=== PATIENT | female | born 1955 | race Caucasian/White ===

== ENCOUNTER 2017-07-21 13:28 | Observation (INO) | payer OTHER, SELFPAY ==
--- NOTE | 2017-07-21 14:01 | RAD ---
1 VIEW CHEST: Date: 07/21/17 HISTORY: Chest pain. COMPARISON: None. FINDINGS: Normal cardiac silhouette. Pulmonary vessels and hilum are normal. No mass. No consolidation. No osse ous abnormalities or pneumothorax. Previous left rotator cuff repair and cervical fusion hardware is noted. IMPRESSION: No acute cardiopulmonary process. POS: [facility]
[2017-07-21 14:03] LABS: #Basophils 0.1 thou/uL (0.0-0.2); #Eosinphils 0.2 thou/uL (0.0-0.7); #Lymphocytes 3.2 thou/uL (1.20-3.40); #Monocytes 0.6 thou/uL (0.11-0.59); #Neutrophils 5.1 thou/uL (1.40-6.50); %Basophils 0.8 % (0.0-1.0); %Eosinophils 1.7 % (0.0-10.0); %Lymphocytes 35.6 % (21.0-51.0); %Monocytes 6.2 % (0.0-10.0); Hematocrit 43.3 % (36.0-47.0); Mean Platelet Volume 7.1 fL (7.4-10.4); Red Blood Cell (RBC) Count 5.37 mill/uL (4.20-5.40); White Blood Cell (WBC) Count 9.1 thou/uL (4.8-10.8)
[2017-07-21] MEDS ORDERED: Nitroglycerin 2% Ointment 1 INCH/1 GM Packet ONE (14:19)
[2017-07-21 14:24] LABS: ALT (SGPT) 28 U/L (8-55); AST (SGOT) 30 U/L (5-34); Alkaline Phosphatase 94 U/L (40-150); Anion Gap 11 mmol/L (10-20); BUN (Urea Nitrogen) 12 mg/dL (9.8-20.1); Bilirubin, Total 0.2 mg/dL (0.2-1.2); CK (CPK) 78 U/L (29-168); Calc. Creatinine Clearance 0 mL/min (70-130); Calcium 9.1 mg/dL (7.8-10.44); Carbon Dioxide 26 mmol/L (23-31); Chloride 104 mmol/L (98-107); Estimated GFR-MDRD 69; Globulin 3.5 g/dL (2.4-3.5); Lipase 25 U/L (8-78); Protein, Total 7.2 g/dL (6.0-8.3)
[2017-07-21 14:29] LABS: Troponin I Less than 0.010 ng/mL (< 0.028)
[2017-07-21] MEDS ORDERED: hydrALAZINE 20 MG/ML VIAL SLOW IVP PRN (17:36)
[2017-07-21] MEDS ORDERED: Dextrose 50% Abboject 50 ML SYRINGE SLOW IVP PRN (17:36)
[2017-07-21] MEDS ORDERED: Insulin Regular 300 UNITS/3 ML VIAL SC PRN ×2 (17:36)
[2017-07-21] MEDS ORDERED: Dextrose 5% in Water 1,000 ML IV PRN (17:36)
[2017-07-21] MEDS ORDERED: Labetalol HCl 100 MG/20 ML VIAL SLOW IVP PRN (17:36)
[2017-07-21] MEDS ORDERED: Calcium Carbonate 500 MG ChewTAB PO PRN (17:36)
[2017-07-21] MEDS ORDERED: Mag-Al 1200 mg/1200 mg/30 ML UDCUP PO PRN (17:36)
[2017-07-21] MEDS ORDERED: Senokot 8.6 MG TAB PO PRN (17:36)
[2017-07-21] MEDS ORDERED: Nitroglycerin 0.4 MG TAB (25 Tab Bottle) PO PRN (17:36)
[2017-07-21] MEDS ORDERED: cloNIDine 0.1 MG TAB PO PRN (17:36)
[2017-07-21 17:45] LABS: Troponin I Less than 0.010 ng/mL (< 0.028)
[2017-07-21 17:55] VITALS: BMI 37.2
[2017-07-21] MEDS: Acetaminophen 325 MG TAB PO PRN (18:12)
[2017-07-21] MEDS ORDERED: Cyclobenzaprine 10 MG TAB PO PRN (18:35)
[2017-07-21] MEDS ORDERED: Insulin Detemir 100 UNITS/ML 10 UNITS in Pre-Filled Syringe SC SCH (18:45)
[2017-07-21] MEDS ORDERED: Insulin Detemir 100 UNITS/ML 20 UNITS in Pre-Filled Syringe 1 EACH SC SCH (18:45)
--- NOTE | 2017-07-21 19:08 | HP ---
DATE OF ADMISSION: 07/21/2017 PRIMARY CARE PHYSICIAN: Dr. Spenser Cloud in [place]. CHIEF COMPLAINT: Chest discomfort. CODE STATUS: FULL CODE. HISTORY OF PRESENT ILLNESS: Patient is a 61-year-old female with hypertension, diabetes mellitus typ e 2, and chronic pain syndrome who presented to the emergency room with above complaints. The chest discomfort started this morning while she was at home. It was pressure-like substernal rad iating to her jaw and neck. She had some nausea and shortness of breath. The chest discomfort impro john with nitroglycerin. She denies any syncope or palpitations. No recent immobilization, travel, f ever, chills, cough, shortness of breath or wheezing. She denies any dyspepsia or abdominal pain. In the emergency room, initial vital signs showed temperature 98.9, respirations 18, pulse of 72, blo od pressure of 112/76 with O2 saturation 99% on 2 liter nasal cannula. Initial troponins were normal . She received aspirin and 1 inch nitro patch was placed. PAST MEDICAL HISTORY: 1. Hypertension. 2. Diabetes mellitus type 2. 3. Chronic pain syndrome. 4. Hypothyroidism. PAST SURGICAL HISTORY: 1. Multiple orthopedic surgeries, especially in her left arm. 2. with bilateral oophorectomy. 3. Rotator cuff surgery on the right shoulder. 4. Tonsillectomy. 5. Multiple spinal surgeries. It was cervical spine and lumbar spine. ALLERGIES: Patient is allergic to PEPCID, IODINE and VACCINES. CURRENT HOME MEDICATIONS: Acyclovir 200 mg daily, atenolol 50 mg b.i.d., benazepril 20 mg daily, Stan rontin 100 mg b.i.d., Lantus 60 units daily, Humulin 70/30 sliding scale, levothyroxine 150 mcg daily and Prilosec 20 mg daily. SOCIAL HISTORY: Patient currently lives at home. She is currently disabled. She denies any history of smoking, alcohol or drug use. FAMILY HISTORY: Brother with leukemia. REVIEW OF SYSTEMS: The following complete review of systems was negative, unless otherwise mentioned in the HPI or below: CONSTITUTIONAL: Weight loss or gain, ability to conduct usual activities. SKIN: Rash, itching. EYES: Double vision, pain. ENT/MOUTH: Nose bleeding, neck stiffness, pain, tenderness. CARDIOVASCULAR: Palpitations, dyspnea on exertion, orthopnea. RESPIRATORY: Shortness of breath, wheezing, cough, hemoptysis, fever or night sweats. GASTROINTESTINAL: Poor appetite, abdominal pain, heartburn, nausea, vomiting, constipation, or diarr hea. GENITOURINARY: Urgency, frequency, dysuria, nocturia. MUSCULOSKELETAL: Pain, swelling. NEUROLOGIC/PSYCHIATRIC: Anxiety, depression. ALLERGY/IMMUNOLOGIC: Skin rash, bleeding tendency. PHYSICAL EXAMINATION: VITAL SIGNS: As discussed above. Her blood pressure in the emergency room was 112/76 with a pulse 7 2, respiration 18 and temperature of 98.9. GENERAL: A 61-year-old female in no apparent distress. Denies any chest discomfort at this time. HEENT: Head atraumatic, normocephalic. Sclerae are anicteric. Moist mucous membrane, no oral lesio n. NECK: Supple, no JVD appreciated. No carotid bruit. LUNGS: Clear to auscultation bilaterally. No wheezing, rales or rhonchi. HEART: S1, S2 present. Regular rate and rhythm. No heaves or pulsation. Questionable reproducible chest wall tenderness. ABDOMEN: Soft, nontender, bowel sounds present. EXTREMITIES: No edema or calf tenderness. NEUROLOGIC: Grossly nonfocal, moves all 4 extremities. PSYCHIATRY: Alert, awake, oriented x3. SKIN: Warm and dry. LYMPH NODES: No palpable lymph nodes in the neck. PERIPHERAL VASCULAR: Radial pulses palpable bilaterally. MUSCULOSKELETAL: No joint swelling or tenderness. LABORATORY FINDINGS: Troponins were normal. Sodium 136, potassium 4.6, chloride 104, bicarbonate 26 . CBC showed WBC 9.1 with hemoglobin 13.9, hematocrit 43.3. EKG by my review showed sinus rhythm wi th voltage criteria for left ventricular hypertrophy, left axis deviation. Chest x-ray by my review was negative for infiltrate or edema. IMPRESSION: 1. Chest discomfort, rule out acute coronary syndrome. Patient has multiple risk factors for pierre ry artery disease. 2. Diabetes mellitus type 2. 3. Hypertension. 4. Chronic pain syndrome due to degenerative joint disease, especially in the back and shoulder. 5. Hypothyroidism. 6. Chronic kidney disease stage 2. 7. Obesity with a BMI 37.2. PLAN: The patient will be monitored in the telemetry unit. Serial cardiac enzymes will be done. We will schedule a stress test in a.m. Home medications will be resumed. We will start her on sliding scale. We will give her low dose of Levemir tonight. Keep her n.p.o. past midnight. Plan of care was discussed with the patient and she stated understanding. DISPOSITION: Probably in 24 hours if stress test is normal.
[2017-07-21] MEDS: Gabapentin 100 MG CAP PO SCH (20:40)
[2017-07-21] MEDS: Atenolol 50 MG TAB PO SCH (20:40)
[2017-07-21 21:17] LABS: Troponin I Less than 0.010 ng/mL (< 0.028)
[2017-07-22] MEDS ORDERED: Levothyroxine 150 MCG TAB PO SCH (06:00)
[2017-07-22] MEDS ORDERED: Acyclovir 200 mg Capsule PO SCH (09:00)
[2017-07-22] MEDS ORDERED: Aspirin 325 MG TAB PO SCH (09:00)
[2017-07-22] MEDS: Atenolol 50 MG TAB PO SCH (11:35)
[2017-07-22] MEDS: Gabapentin 100 MG CAP PO SCH (11:36)
--- NOTE | 2017-07-22 12:58 | NM ---
RADIONUCLIDE STRESS ONLY MYOCARDIAL PERFUSION SCAN WITH CT ATTENUATION CORRECTION AND SPECT IMAGING LEFT VENTRICULAR WALL MOTION EVALUATION AND EJECTION FRACTION: HISTORY: Chest pain. FINDINGS: Adenosine protocol was used. There is heterogeneous uptake of radiotracer throughout the left ventri cular myocardium without focal perfusion defect apparent. QGS analysis of gated SPECT images shows hypokinesis, most pronounced at the septal/inferior wall. Le ft ventricular ejection fraction is calculated at 37%. IMPRESSION: 1. Normal myocardial perfusion scan showing no evidence of ischemia. 2. Depressed ejection fraction. Please correlate with other information regarding cardiomyopathy. POS: [facility]
--- NOTE | 2017-07-22 14:06 | PDOC.PN ---
- Subjective Encounter Start Date: 07/22/17 Encounter Start Time: 14:03 Patient seen and examined. No new complaints. No overnight events. No CP - Objective Resuscitation Status: Resuscitation Status FULL:Full Resuscitation MAR Reviewed: Yes Vital Signs & Weight: Vital Signs (12 hours) Temp Pulse Resp BP BP Pulse Ox 07/22/17 12:00 97.7 F 77 20 142/65 H 96 07/22/17 11:36 142/65 H 07/22/17 11:35 66 142/65 H 07/22/17 08:15 97.6 F 66 20 126/64 94 L 07/22/17 07:54 98.1 F 70 16 07/22/17 04:45 98.1 F 70 16 132/62 95 Weight Weight 196 lb 6.4 oz I&O: 07/21/17 07/22/17 07/23/17 06:59 06:59 06:59 Intake Total 540 115 Output Total 1750 450 Balance -1210 -335 Result Diagrams: 07/21/17 13:51 07/21/17 13:50 Additional Labs: Accuchecks 07/22/17 07/22/17 07/22/17 08:35 04:44 00:25 POC Glucose 125 H 129 H 143 H 07/21/17 07/21/17 20:40 16:57 POC Glucose 208 H 115 H Phys Exam - Physical Examination Constitutional: NAD Respiratory: no wheezing, no rhonchi Cardiovascular: RRR, no rub Gastrointestinal: soft, non-tender, positive bowel sounds Musculoskeletal: no edema Neurological: non-focal, moves all 4 limbs Psychiatric: A&O x 3 Dx/Plan - Plan DVT proph w/SCDs IMPRESSION: 1. Chest discomfort. Stress test - EF 37%. No reversible ischemia. 2. Diabetes mellitus type 2. 3. Hypertension. 4. Chronic pain syndrome due to degenerative joint disease, especially in the back and shoulder. 5. Hypothyroidism. 6. Chronic kidney disease stage 2. 7. Obesity with a BMI 37.2. PLAN: * Urgent Echo to evaluate EF * Cont other meds as below * Consult Cardiology if EF is low * Cont to monitor Review of Systems - Review of Systems Respiratory: negative: Cough, Dry, Shortness of Breath, Hemoptysis, SOB with Excertion, Pleuritic Pain, Sputum, Wheezing Cardiovascular: negative: Chest Pain, Palpitations, Orthopnea, Paroxysmal Noc. Dyspnea, Edema, Light Headedness, Other Gastrointestinal: negative: Nausea, Vomiting, Abdominal Pain, Diarrhea, Constipation, Melena, Hematochezia, Other - Medications/Allergies Allergies/Adverse Reactions: Allergies Allergy/AdvReac Type Severity Reaction Status Date / Time [id number] Reductase Allergy Unknown Verified 07/22/17 06:29 Inhibitor famotidine [From Pepcid] Allergy VOMITING Verified 12/02/15 16:39 Iodine and Iodide Containing Allergy ITCHING, Verified 12/02/15 16:39 Produc ANAPHYLAXIS ondansetron HCl Allergy VOMITING Verified 12/02/15 16:39 [From Zofran (as hydrochloride)] pneumococcal vaccine Allergy Rash Verified 12/02/15 16:39 Sulfa (Sulfonamide Allergy HALLUCINATI Verified 12/02/15 16:39 Antibiotics) ONS zolpidem tartrate Allergy HALLUCINATI Verified 12/02/15 16:39 [From Ambien] ONS vaccine preservative Allergy Uncoded 12/02/15 16:39 Medications: Current Medications Acetaminophen (Tylenol) 650 mg PO Q4H PRN PRN Reason: Headache/Fever or Pain Last Admin: 07/21/17 18:12 Dose: 650 mg Acyclovir (Zovirax) 200 mg PO DAILY [facility] Stop: 07/29/17 09:01 Last Admin: 07/22/17 11:35 Dose: 200 mg Al Hydroxide/Mg Hydroxide (Maalox) 30 ml PO Q6H PRN PRN Reason: Heartburn or Indigestion Aspirin (Aspirin) 325 mg PO DAILY [facility] Last Admin: 07/22/17 11:35 Dose: 325 mg Atenolol (Tenormin) 50 mg PO BID [facility] Last Admin: 07/22/17 11:35 Dose: 50 mg Benazepril HCl (Lotensin) 20 mg PO DAILY [facility] Last Admin: 07/22/17 11:36 Dose: 20 mg Calcium Carbonate (Tums) 1,000 mg PO Q4H PRN PRN Reason: Heartburn or Indigestion Clonidine (Catapres) 0.1 mg PO Q4H PRN PRN Reason: Systolic BP > 180 Cyclobenzaprine HCl (Flexeril) 5 mg PO TID PRN PRN Reason: Muscle Spasm Stop: 07/23/17 18:36 Dextrose/Water (Dextrose 50%) 25 gm SLOW IVP PRN PRN PRN Reason: Hypoglycemia Gabapentin (Neurontin) 100 mg PO BID [facility] Last Admin: 07/22/17 11:36 Dose: 100 mg Glucagon (Glucagon) 1 mg IM PRN PRN PRN Reason: Hypoglycemia Hydralazine HCl (Apresoline) 10 mg SLOW IVP Q4H PRN PRN Reason: SBP Greater Than 180 Dextrose/Water (D5w) 1,000 mls @ 0 mls/hr IV .Q0M PRN; As Directed PRN Reason: Hypoglycemia Insulin Human Regular (Humulin R) 0 units SC .MILD SLIDING SCALE PRN PRN Reason: Mild Correctional Scale Insulin Human Regular (Humulin R) 0 units SC .BEDTIME SLIDING SC PRN PRN Reason: Bedtime Correctional Scale Labetalol HCl (Normodyne) 10 mg SLOW IVP Q4H PRN PRN Reason: Systolic BP > 180 Levothyroxine Sodium (Synthroid) 150 mcg PO 0600 [facility] Last Admin: 07/22/17 04:49 Dose: 150 mcg Nitroglycerin (Nitrostat) 0.4 mg PO Q5MIN PRN PRN Reason: Chest Pain Pantoprazole Sodium (Protonix) 40 mg PO DAILY [facility] Last Admin: 07/22/17 11:36 Dose: 40 mg Senna (Senokot) 2 tab PO HSPRN PRN PRN Reason: Constipation Sodium Chloride (Flush - Normal Saline) 10 ml IVF PRN PRN PRN Reason: Saline Flush
[2017-07-22 16:05] VITALS: BP 113/60; TEMP 98.4
[2017-07-22] MEDS: Acetaminophen 325 MG TAB PO PRN (16:31)
[2017-07-22] MEDS ORDERED: ADENOSINE 60 MG/20 ML VIAL ONE (16:43)
--- NOTE | 2017-07-22 19:11 | DIS ---
DATE OF DISCHARGE: 07/22/2017 DISCHARGE DISPOSITION: Home. FOLLOWUP: Follow up with Dr. Clemente Cloud in 1 week. DISCHARGE MEDICATIONS: 1. Aspirin 81 mg daily. 2. Atenolol 50 mg b.i.d. 3. Benazepril 20 mg daily. 4. Flexeril as needed. 5. Neurontin 100 mg b.i.d. 6. Lantus 60 units daily. 7. Humulin 70/30 as directed. 8. Levothyroxine 150 mcg daily. 9. Omeprazole 20 mg daily. 10. Acyclovir 200 mg daily. INPATIENT CONSULTANTS: None. The patient was seen and examined on the day of discharge. Denies any new complaints. No chest pain , shortness of breath, palpitations. BRIEF HOSPITAL COURSE: The patient is a 61-year-old female with hypertension; diabetes mellitus, typ e 2; chronic pain syndrome; and obstructive sleep apnea, not on CPAP; who presented to the emergency room with chest discomfort. Please refer to the history and physical dated 07/21/2017 for further de tails. The patient was admitted to the hospital with the diagnosis of chest discomfort, rule out acute coron peggy syndrome. Her serial cardiac enzymes were negative. She underwent a Cardiolite stress test that was negative for reversible ischemia. Ejection fraction on the stress test was around 37%. For thi s reason, an echocardiogram was done that showed ejection fraction 40% to 45% with grade I diastolic dysfunction. Right ventricular size and function was normal. Left atrium was normal in size. There was also mild mitral regurgitation and mild tricuspid regurgitation. Lifestyle modification was emp hasized. She will benefit from a Cardiology consultation and follow up as outpatient. I also discus sed the case with the on-call surface miner. No new recommendations were made. She needs to get a sl eep study and be compliant with CPAP. She will benefit from a repeat echo in 3-6 months. Weight los s was emphasized. FINAL DIAGNOSES: 1. Chest discomfort, acute coronary syndrome ruled out. 2. No reversible ischemia on the stress test. 3. Cardiomyopathy with ejection fraction of 40% to 45% of unclear etiology. An outpatient cardiolog y evaluation is recommended. Again, there was no reversible ischemia on the stress test. 4. Hypertension. 5. Chronic pain syndrome. 6. Hypothyroidism. 7. Obstructive sleep apnea, not on CPAP. 8. Chronic kidney disease, stage 2. 9. Obesity with BMI of 37.1. 10. Chronic diastolic heart failure, compensated. SIGNIFICANT LABORATORY DATA: 1. Fasting lipid showed cholesterol 184, cholesterol 206, LDL was 127, HDL 42. 2. BUN was 12, creatinine 0.83, potassium 4.6 with chloride 104, sodium 136. 3. CBC showed WBC 9.1 with hemoglobin 13.9.
--- NOTE | 2017-09-03 14:59 | EKG ---
Test Reason : CHEST PAIN Blood Pressure : / mmHG Vent. Rate : 071 BPM Atrial Rate : 071 BPM P-R Int : 160 ms QRS Dur : 086 ms QT Int : 418 ms P-R-T Axes : 036 -12 034 degrees QTc Int : 454 ms Normal sinus rhythm Voltage criteria for left ventricular hypertrophy Inferior infarct , age undetermined Abnormal ECG Confirmed by CAT BOSWELL D.O. ([id number]), proposal editor DEONNA PATEL ([id number]) on 09/03/2017 2:58:44 PM Referred By: Confirmed By:CAT BOSWELL D.O.
== END 2017-07-22 18:53 | disposition home or self-care (01) ==
LOC: ERS 13:28 → 2SW 16:37
PROVIDERS: ADMIT Internal Medicine; ATTEND Internal Medicine
DX: R07.89 Other chest pain (principal); G89.4 Chronic pain syndrome; E03.9 Hypothyroidism, unspecified; G47.33 Obstructive sleep apnea (adult) (pediatric); I11.9 Hypertensive heart disease without heart failure; E11.22 Type 2 diabetes mellitus with diabetic chronic kidney disease; I13.0 Hypertensive heart and chronic kidney disease with heart failure and stage 1 through stage 4 chronic kidney disease, or unspecified chronic kidney disease; N18.2 Chronic kidney disease, stage 2 (mild); I50.32 Chronic diastolic (congestive) heart failure; E66.9 Obesity, unspecified; Z68.37 Body mass index [BMI] 37.0-37.9, adult; Z79.4 Long term (current) use of insulin; Z79.82 Long term (current) use of aspirin; Z79.899 Other long term (current) drug therapy; Z88.7 Allergy status to serum and vaccine; Z88.8 Allergy status to other drugs, medicaments and biological substances; Z91.041 Radiographic dye allergy status; Z88.2 Allergy status to sulfonamides; Z90.89 Acquired absence of other organs; Z90.722 Acquired absence of ovaries, bilateral; Z98.890 Other specified postprocedural states
CPT/HCPCS: 36415; 36416; 71010; 78452; 80053; 80061; 82553; 83690; 83735; 83880; 84484; 85025; 93005; 93017; 93306; 94760; A9500; G0378; J0153; J1815